=== PATIENT | male | born 1970 | race Two or more races ===

== ENCOUNTER 2023-04-27 10:12 | Emergency (ER) | payer OTHER ==
[~2023-04-27] VITALS: Ht 165.1 cm; Wt 79.5 kg
[2023-04-27 10:16] VITALS: TEMP 98.2
[2023-04-27 10:36] VITALS: BP 140/86; PULSE 114; RESP 16
[2023-04-27] MEDS ORDERED: IBUP-1492 PO (10:49)
[2023-04-27] MEDS ORDERED: IBUPROFEN 600 MG TABLET PO ONE (11:00)
== END 2023-04-27 11:23 | disposition home or self-care (01) ==
LOC: EMS 10:12
DX: S90.01XA Contusion of right ankle, initial encounter (principal); F10.90 Alcohol use, unspecified, uncomplicated; Z98.890 Other specified postprocedural states; X58.XXXA Exposure to other specified factors, initial encounter; Y93.89 Activity, other specified; Y92.89 Other specified places as the place of occurrence of the external cause; Y99.8 Other external cause status; Y90.9 Presence of alcohol in blood, level not specified
CPT/HCPCS: 99283